=== PATIENT | female | born 1975 | race Caucasian/White ===

== ENCOUNTER 2017-05-29 21:39 | Inpatient (IN) | payer OTHER, MEDICAID ==
[~2017-05-29] VITALS: Ht 137.2 cm; Wt 158.8 kg
[~2017-05-29 21:39] MED LIST: ACETAMINOPHEN-1 EAC2 ORAL; ALBUTEROL SULF8.5 GM INH; AZITHROMYCIN250 MG ORAL; CYCLOBENZAPRINE10 MG ORAL; IBUPROFEN600 MG ORAL; IBUPROFEN800 MG ORAL; MEDROL DOSEPAK4 MG ORAL; NKM; NORCO 5-325 TA1 EACH ORAL; NORCO1 E1 ORAL; PREDNISONE1 MG PO; PREDNISONE10 MG ORAL; PRILOSEC2.5 MG ORAL; PROMETHAZINE-C118 M1 ORAL; RESTORIL15 MG ORAL; ROBAXIN500 MG PO; SEROQUEL100 MG ORAL
[2017-05-29] MEDS ORDERED: NORVASC5 MG ORAL (22:03)
[2017-05-29] MEDS ORDERED: FUROSEMIDE40 MG ORAL (22:03)
[2017-05-29] MEDS ORDERED: ALBUTEROL SULF8.5 GM INH (22:03)
[2017-05-29] MEDS ORDERED: Albuterol ud Inhalation HHN ONE ×2 (22:15→23:00)
[2017-05-29] MEDS ORDERED: PredniSONE 20mg tab ORAL ONE (22:15)
[2017-05-29] MEDS ORDERED: Ipratropium 0.02% Inh Soln 2.5ml UD HHN ONE (22:15)
[2017-05-29 23:44] VITALS: BP 144/56
[2017-05-30 00:30] LABS: APPEARANCE,URINE CLEAR; KETONES,URINE 1+ (NEGATIVE); LEUKOCYTE ESTERASE ,URINE 1+ (NEGATIVE); NITRITE,URINE NEGATIVE (NEGATIVE); PH,URINE 5 (4.5-8.0); PROTEIN,URINE 1+ (NEGATIVE); UROBILINOGEN,URINE 1 MG/DL (0.0-1.0)
[2017-05-30 00:40] LABS: MEAN CORPUSCULAR HEMOGLOBIN 25.9 PG (27.0-31.0); MEAN CORPUSCULAR HGB CONC 31.6 G/DL (32.0-36.0); MEAN CORPUSCULAR VOLUME 82 FL (80-99); MEAN PLATELET VOLUME 7.4 FL (6.5-10.1); PLATELET COUNT 485 K/UL (150-450); RED CELL DISTRIBUTION WIDTH 14.1 % (11.6-14.8); WHITE BLOOD COUNT 19.3 K/UL (4.8-10.8)
[2017-05-30 00:49] LABS: BACTERIA,URINE FEW /HPF; RBC,URINE 0-2 /HPF (0 - 2); SQUAMOUS EPITHELIAL CELL,UR FEW /LPF (NONE/OCC)
[2017-05-30 00:52] LABS: ANION GAP 13 (5-15); CALCIUM 9.2 mg/dL (8.6-10.2); CARBON DIOXIDE 24 mEQ/L (20-30); CHLORIDE 103 mEQ/L (98-107); CREATININE 0.7 mg/dL (0.5-0.9); GLOMERULAR FILTRATION RATE > 60 mL/min (>60); HEMOLYSIS 4; SODIUM 140 mEQ/L (135-145)
[2017-05-30] MEDS ORDERED: cefTRIAXone 1 GM in NS 55 ML IVPB ONE (01:00)
[2017-05-30] MEDS ORDERED: Azithromycin 250mg tab ORAL ONE ×2 (01:00→01:15)
--- NOTE | 2017-05-30 01:14 | Emergency Room Report ---
History of Present Illness General Chief Complaint: Dyspnea/Respdistress Source: Patient Present Illness HPI This is a 41-year-old female who is morbidly obese with a BMI of 84. She has a history of asthma. She presents with chief complaint shortness of breath has been on and off for the last month. History with antibiotics and urgent care month ago. She is using her nebulizer machine without any relief. She is no longer taking Advair. She presents with wheezing the last couple days. Severe. Worse with breathing. Worse with coughing. Worse with exertion. No fever or chills. Cough is nonproductive in nature. Allergies: Coded Allergies: DIVALPROEX SODIUM (Verified Allergy, Intermediate, anxious, 12/12/13) HALOPERIDOL (Verified Allergy, Intermediate, anxiety, 12/12/13) RED DYE (Unverified Allergy, Mild, 03/27/16) Uncoded Allergies: ZYPREXA (Allergy, Unknown, 06/03/16) Patient History Past Medical History: see triage record, old chart reviewed, asthma, psych hx Past Surgical History: other Pertinent Family History: none Social History: Denies: smoking, alcohol use, drug use Now: No Immunizations: other Reviewed Nursing Documentation: PMH: Agreed, PSxH: Agreed Nursing Documentation-PMH Past Medical History: No History, Except For Hx Hypertension: Yes Hx Asthma: Yes Hx COPD: Yes History Of Psychiatric Problem: No - Sleep apnea Review of Systems Eye: Denies: eye pain, blurred vision ENT: Denies: ear pain, nose congestion, throat swelling Respiratory: Reports: cough, shortness of breath, wheezing Cardiovascular: Denies: chest pain, palpitations Gastrointestinal: Denies: abdominal pain, diarrhea, nausea, vomiting Musculoskeletal: Denies: back pain, joint pain Skin: Denies: rash Neurological: Denies: headache, numbness Endocrine: Denies: increased thirst, increased urine Hematologic/Lymphatic: Denies: easy bruising All Other Systems: negative except mentioned in HPI Physical Exam Vital Signs Date Time Temp Pulse Resp B/P (MAP) Pulse Ox O2 Delivery O2 Flow Rate FiO2 05/29/17 21:56 97.9 103 21 142/84 96 Room Air vitals unremarkable Sp02 EP Interpretation: reviewed, normal General Appearance: well appearing, no apparent distress, alert, obese Head: normocephalic, atraumatic Eyes: bilateral eye PERRL, bilateral eye EOMI ENT: hearing grossly normal, normal pharynx Neck: full range of motion, supple, no meningismus Respiratory: chest non-tender, normal breath sounds, wheezing Cardiovascular #1: regular rate, rhythm, no murmur Gastrointestinal: normal bowel sounds, non tender, no mass, no organomegaly, no bruit, non-distended Musculoskeletal: back normal, gait/station normal, normal range of motion Neurologic: alert, oriented x3 Psychiatric: mood/affect normal Skin: warm/dry Medical Decision Making Diagnostic Impression: Primary Impression: Status asthmaticus Qualified Codes: J45.52 - Severe persistent asthma with status asthmaticus Additional Impressions: Morbid obesity with BMI of 60.0-69.9, adult UTI (urinary tract infection) Qualified Codes: N30.00 - Acute cystitis without hematuria ER Course Patient with severe asthma exacerbation. After several treatment and steroid she still wheezing. She does have a leukocytosis. This may be secondary to infection versus steroid response. Antibiotics given. No evidence of ACS, PE, dissection to name a few. We'll get for further workup. Lab Results Impression labs with leukocytosis Rhythm Strip Diag. Results EP Interpretation: yes Rate: 40 Rhythm: NSR, no PVC's, no ectopy Chest X-Ray Diagnostic Results Chest X-Ray Diagnostic Results : Chest X-Ray Ordered: Yes # of Views/Limited/Complete: 1 View Indication: Shortness of Breath EP Interpretation: Yes Interpretation: no consolidation, no effusion, no pneumothorax, no acute cardiopulmonary disease Impression: No acute disease Interpreting ER Provider: Electronically signed by Jordy Woods MD Last Vital Signs Date Time Temp Pulse Resp B/P (MAP) Pulse Ox O2 Delivery O2 Flow Rate FiO2 05/29/17 23:44 97.6 103 20 144/56 96 Room Air Status: improved Disposition: ADMITTED INPATIENT Condition: Serious JORDY WOODS M.D. May 30, 2017 01:14
[2017-05-30 01:19] LABS: BAND NEUTROPHILS % (MANUAL) 1 % (0-8); BASOPHILS % (MANUAL) 0 % (0-2); EOSINOPHILS % (MANUAL) 3 % (0-3); LYMPHOCYTES % (MANUAL) 37 % (20-45); NEUTROPHILS % (MANUAL) 51 % (45-75); PLATELET ESTIMATE ADEQUATE; PLATELET MORPHOLOGY NORMAL; TOTAL CELLS COUNTED 100
[2017-05-30 02:01] VITALS: BP 139/62
[2017-05-30] MEDS ORDERED: NS 55 ML IV ONE (02:03)
[2017-05-30] MEDS ORDERED: Tubing IV Cassette IV ONE (02:03)
[2017-05-30 04:00] VITALS: BP 128/70
[2017-05-30] MEDS ORDERED: DuoNeb 0.5-3(2.5)mg/3ml neb HHN PRN (04:45)
[2017-05-30] MEDS ORDERED: Methocarbamol 500mg tab ORAL PRN (05:00)
[2017-05-30] MEDS ORDERED: Tylenol #4 Tab (300mg/60mg) ORAL PRN (05:00)
[2017-05-30] MEDS ORDERED: Solu-MEDROL 125mg Inj IVP SCH (06:00)
[2017-05-30 08:30] VITALS: BP 127/63
--- NOTE | 2017-05-30 08:35 | Diagnostic Imaging Report ---
Indication: Dyspnea Comparison: 02/18/16 A single view chest radiograph was obtained. Findings: Vascular congestion is suspected with hilar vascular prominence and megaly. Bones are unremarkable. Impression: Suspected mild CHF
--- NOTE | 2017-05-30 08:49 | History and Physical ---
History of Present Illness General Date patient seen: May 30, 2017 Time patient seen: 08:10 Reason for Hospitalization: Dyspnea/Respdistress Present Illness HPI 41-year-old female, morbidly obese with hx of asthma, status asthmaticus, Prader Mariano syndrome presented with intermittent shortness of breath for the last month. Seen doctor in urgent care, was giving antibiotics Had nebulizing machine at home, not helped Not taking Advair ( did before) Last few days developed severe wheezing, worse with coughing and on exertion Cough nonproductive, no hemoptysis Denied chest pain, palpitations, dizziness Workup in ED revealed stable VS leukocytosis-19.3 CXR with mild CHF , but pro BNP-58 mild anemia -11.7/36.9 UA + pyuria, but no bacteria patient was admitted for further management Allergies: Coded Allergies: DIVALPROEX SODIUM (Verified Allergy, Intermediate, anxious, 12/12/13) HALOPERIDOL (Verified Allergy, Intermediate, anxiety, 12/12/13) RED DYE (Unverified Allergy, Mild, 03/27/16) Uncoded Allergies: ZYPREXA (Allergy, Unknown, 06/03/16) Medication History Scheduled Albuterol Sulfate* (Albuterol Sulfate Mdi*), 2 PUFF INH Q4H Albuterol Sulfate* (Albuterol Sulfate Mdi*), 2 PUFF INH Q3H, (Reported) Amlodipine Besylate (Norvasc), 5 MG ORAL DAILY, (Reported) Azithromycin* (Zithromax*), 250 MG ORAL DAILY Furosemide* (Lasix*), 40 MG ORAL DAILY, (Reported) No Known Medications* (NKM - No Known Medications*), 0 ., (Reported) Omeprazole Magnesium (Prilosec), 2.5 MG ORAL DAILY, (Reported) Prednisone (Prednisone), 1 MG PO DAILY, (Reported) Prednisone* (Prednisone*), 10 MG ORAL DAILY Quetiapine Fumarate* (Seroquel*), 300 MG ORAL QHS Scheduled PRN Acetaminophen With Codeine (T#4) (Tylenol #4 Tab*), 1 TAB ORAL Q8H PRN for For Pain Ibuprofen* (Motrin*), 600 MG ORAL Q6H PRN for For Pain Methocarbamol* (Robaxin*), 500 MG PO TID PRN for spasms Patient History Healthcare decision maker Resuscitation status Advanced Directive on File Past Medical/Surgical History Past Medical/Surgical History: (1) Asthma (2) Morbid obesity with BMI of 60.0-69.9, adult (3) Prader-Willi syndrome (4) Status asthmaticus (5) Asthmatic bronchitis (6) Chronic back pain Review of Systems Constitutional: Reports: weakness Eye: Reports: no symptoms ENT: Reports: no symptoms Respiratory: Reports: see HPI Musculoskeletal: Reports: no symptoms Skin: Reports: no symptoms Neurological: Reports: no symptoms Endocrine: Reports: no symptoms Hematologic/Lymphatic: Reports: no symptoms Physical Exam General Appearance: no apparent distress, alert - aawake, oriented, responsive , morbidly obese Lines, tubes and drains: peripheral HEENT: normocephalic, atraumatic, anicteric, mucous membranes moist Neck: supple Respiratory/Chest: no respiratory distress, no accessory muscle use, expiratory wheezing - scattered Cardiovascular/Chest: normal peripheral pulses, regular rhythm, no JVD Abdomen: normal bowel sounds, non tender - obese, soft - obese Extremities: normal range of motion, non-tender, no calf tenderness, normal capillary refill, other - +1 edema BLE Skin Exam: warm/dry Neurologic: no motor/sensory deficits, alert, responsive Musculoskeletal: normal muscle bulk Last 24 Hour Vital Signs Date Time Temp Pulse Resp B/P (MAP) Pulse Ox O2 Delivery O2 Flow Rate FiO2 05/30/17 04:00 97.5 84 18 128/70 95 Nasal Cannula 2.0 05/30/17 03:35 97.6 89 24 139/62 96 Nasal Cannula 2.0 05/30/17 02:01 89 24 139/62 96 Nasal Cannula 2.0 05/29/17 23:44 97.6 103 20 144/56 96 Room Air 05/29/17 23:32 103 23 99 Room Air 05/29/17 23:09 93 34 99 Room Air 05/29/17 22:42 94 31 98 Room Air 05/29/17 22:28 97 26 Room Air 05/29/17 22:26 97 26 97 Room Air 05/29/17 22:25 97 Room Air 05/29/17 21:56 97.9 103 21 142/84 96 Room Air Laboratory Tests Test 05/29/17 23:50 05/30/17 00:00 Urine Color Yellow Urine Appearance Clear Urine pH 5 (4.5-8.0) Urine Specific [place] 1.025 (1.005-1.035) Urine Protein 1+ (NEGATIVE) H Urine Glucose (UA) Negative (NEGATIVE) Urine Ketones 1+ (NEGATIVE) H Urine Occult Blood Negative (NEGATIVE) Urine Nitrite Negative (NEGATIVE) Urine Bilirubin Negative (NEGATIVE) Urine Urobilinogen 1 MG/DL (0.0-1.0) H Urine Leukocyte Esterase 1+ (NEGATIVE) H Urine RBC 0-2 /HPF (0 - 2) Urine WBC 5-10 /HPF (0 - 2) H Urine Squamous Epithelial Cells Few /LPF (NONE/OCC) Urine Bacteria Few /HPF (NONE) Urine HCG, Qualitative Negative White Blood Count 19.3 K/UL (4.8-10.8) H Red Blood Count 4.50 M/UL (4.20-5.40) Hemoglobin 11.7 G/DL (12.0-16.0) L Hematocrit 36.9 % (37.0-47.0) L Mean Corpuscular Volume 82 FL (80-99) Mean Corpuscular Hemoglobin 25.9 PG (27.0-31.0) L Mean Corpuscular Hemoglobin Concent 31.6 G/DL (32.0-36.0) L Red Cell Distribution Width 14.1 % (11.6-14.8) Platelet Count 485 K/UL (150-450) H Mean Platelet Volume 7.4 FL (6.5-10.1) Neutrophils (%) (Auto) % (45.0-75.0) Lymphocytes (%) (Auto) % (20.0-45.0) Monocytes (%) (Auto) % (1.0-10.0) Eosinophils (%) (Auto) % (0.0-3.0) Basophils (%) (Auto) % (0.0-2.0) Differential Total Cells Counted 100 Neutrophils % (Manual) 51 % (45-75) Lymphocytes % (Manual) 37 % (20-45) Monocytes % (Manual) 8 % (1-10) Eosinophils % (Manual) 3 % (0-3) Basophils % (Manual) 0 % (0-2) Band Neutrophils 1 % (0-8) Platelet Estimate Adequate Platelet Morphology Normal Red Blood Cell Morphology Normal Sodium Level 140 mEQ/L (135-145) Potassium Level 4.0 mEQ/L (3.4-4.9) Chloride Level 103 mEQ/L (98-107) Carbon Dioxide Level 24 mEQ/L (20-30) Anion Gap 13 (5-15) Blood Urea Nitrogen 16 mg/dL (7-23) Creatinine 0.7 mg/dL (0.5-0.9) Estimat Glomerular Filtration Rate > 60 mL/min (>60) Glucose Level 119 mg/dL (74-106) H Calcium Level 9.2 mg/dL (8.6-10.2) Pro-B-Type Natriuretic Peptide 58 pg/mL (0-125) Height (Feet): 4 Height (Inches): 6.00 Weight (Pounds): 350 Medications Current Medications Medications (Trade) Dose Ordered Sig/Missy Route PRN Reason Start Time Stop Time Status Last Admin Dose Admin Acetaminophen/ Codeine Phosphate (Tylenol #4) 326 ea Q8H PRN ORAL For Pain 05/30/17 05:00 06/06/17 04:59 Albuterol/ Ipratropium (DuoNeb 0.5-3(2.5)mg/3ml) 3 ml Q4H PRN HHN Shortness of Breath 05/30/17 04:45 06/04/17 04:44 Amlodipine Besylate (Norvasc) 5 mg DAILY ORAL 05/30/17 09:00 06/29/17 08:59 Furosemide (Lasix) 40 mg DAILY ORAL 05/30/17 09:00 06/29/17 08:59 Heparin Sodium (Porcine) (Heparin 5000 units/ml) 5,000 units EVERY 12 HOURS SUBQ 05/30/17 09:00 06/29/17 08:59 Methocarbamol (Robaxin) 500 mg TID PRN ORAL spasms 05/30/17 05:00 06/29/17 04:59 Methylprednisolone Sodium Succinate (Solu-MEDROL) 60 mg EVERY 6 HOURS IVP 05/30/17 06:00 06/29/17 05:59 05/30/17 06:01 Quetiapine Fumarate (SEROquel) 300 mg QHS ORAL 05/30/17 21:00 06/29/17 20:59 Assessment/Plan Assessment/Plan ASSESSMENT status asthmaticus leucocytosis possible PNA possible mild CHF possible UTI mild anemia morbid obesity Prader Mariano syndrome PLAN OF CARE MS floor O2 to keep sat above 92% pulmonary toilet: HHN ATC and PRN and CPT with HHN empiric abx sputum cx if able fup with urine cx IV steroids and taper as permitted a/tussive prn low dose diuretic fup with CXR monitor DVT GI prophylaxis case discussed and evaluated by supervising physician Kiko (Garrett),Blanca MORENO May 30, 2017 08:49
[2017-05-30] MEDS ORDERED: Furosemide 40mg tab ORAL SCH ×2 (09:00)
[2017-05-30] MEDS: Solu-MEDROL 125mg Inj IVP SCH ×2 (10:05→23:51)
[2017-05-30] MEDS: Heparin 5000 units/ml inj SUBQ SCH ×2 (10:07→20:55)
[2017-05-30] MEDS: DuoNeb 0.5-3(2.5)mg/3ml neb HHN SCH ×2 (10:20→19:51)
[2017-05-30] MEDS: Tylenol #4 Tab (300mg/60mg) ORAL PRN ×2 (10:23→17:45)
[2017-05-30 11:07] LABS: MEAN CORPUSCULAR HEMOGLOBIN 26.9 PG (27.0-31.0); MEAN CORPUSCULAR HGB CONC 32.6 G/DL (32.0-36.0); MEAN CORPUSCULAR VOLUME 83 FL (80-99); MEAN PLATELET VOLUME 7.4 FL (6.5-10.1); PLATELET COUNT 462 K/UL (150-450); RED BLOOD COUNT 4.42 M/UL (4.20-5.40); RED CELL DISTRIBUTION WIDTH 14.4 % (11.6-14.8); WHITE BLOOD COUNT 13.9 K/UL (4.8-10.8)
[2017-05-30 11:28] LABS: ANISOCYTOSIS 1+; BAND NEUTROPHILS % (MANUAL) 0 % (0-8); BASOPHILS % (MANUAL) 0 % (0-2); EOSINOPHILS % (MANUAL) 0 % (0-3); HYPOCHROMASIA 1+; LYMPHOCYTES % (MANUAL) 8 % (20-45); NEUTROPHILS % (MANUAL) 90 % (45-75); PLATELET ESTIMATE ADEQUATE; PLATELET MORPHOLOGY NORMAL; TOTAL CELLS COUNTED 100
[2017-05-30 11:29] LABS: ANION GAP 11 (5-15); CALCIUM 9.2 mg/dL (8.6-10.2); CARBON DIOXIDE 24 mEQ/L (20-30); CHLORIDE 102 mEQ/L (98-107); CREATININE 0.5 mg/dL (0.5-0.9); GLOMERULAR FILTRATION RATE > 60 mL/min (>60); HEMOLYSIS 0; POTASSIUM 4.1 mEQ/L (3.4-4.9); SODIUM 137 mEQ/L (135-145)
[2017-05-30 12:15] VITALS: BP 131/65
[2017-05-30] MEDS ORDERED: guaiFENesin 100mg/5ml Liq ud ORAL PRN (13:00)
[2017-05-30 21:00] VITALS: BP 115/62
[2017-05-31] MEDS: Solu-MEDROL 125mg Inj IVP SCH (05:31)
[2017-05-31] MEDS: Furosemide 40mg tab ORAL SCH (07:32)
[2017-05-31] MEDS: Heparin 5000 units/ml inj SUBQ SCH ×2 (07:36→20:06)
[2017-05-31 07:50] LABS: MEAN CORPUSCULAR HEMOGLOBIN 26.2 PG (27.0-31.0); MEAN CORPUSCULAR HGB CONC 31.3 G/DL (32.0-36.0); MEAN CORPUSCULAR VOLUME 84 FL (80-99); MEAN PLATELET VOLUME 7.5 FL (6.5-10.1); PLATELET COUNT 449 K/UL (150-450); RED BLOOD COUNT 4.02 M/UL (4.20-5.40); RED CELL DISTRIBUTION WIDTH 14.7 % (11.6-14.8); WHITE BLOOD COUNT 19.6 K/UL (4.8-10.8)
[2017-05-31 07:53] LABS: ANION GAP 11 (5-15); CALCIUM 8.5 mg/dL (8.6-10.2); CARBON DIOXIDE 27 mEQ/L (20-30); CHLORIDE 104 mEQ/L (98-107); CREATININE 0.6 mg/dL (0.5-0.9); GLOMERULAR FILTRATION RATE > 60 mL/min (>60); HEMOLYSIS 0; POTASSIUM 4.2 mEQ/L (3.4-4.9); SODIUM 142 mEQ/L (135-145)
[2017-05-31 08:00] VITALS: BP 129/85
[2017-05-31 09:42] LABS: BAND NEUTROPHILS % (MANUAL) 1 % (0-8); LYMPHOCYTES % (MANUAL) 21 % (20-45); NEUTROPHILS % (MANUAL) 72 % (45-75); TOTAL CELLS COUNTED 100
[2017-05-31 09:50] LABS: BASOPHILS % (MANUAL) 0 % (0-2); EOSINOPHILS % (MANUAL) 0 % (0-3); HYPOCHROMASIA 1+; PLATELET ESTIMATE ADEQUATE
[2017-05-31] MEDS: DuoNeb 0.5-3(2.5)mg/3ml neb HHN SCH ×3 (10:10→19:34)
--- NOTE | 2017-05-31 10:14 | Pulmonology Progress Note ---
Assessment/Plan Assessment/Plan ASSESSMENT status asthmaticus leucocytosis possible PNA possible mild CHF possible UTI mild anemia morbid obesity HTN Prader Willi syndrome PLAN OF CARE MS floor O2 to keep sat above 92% pulmonary toilet: HHN ATC and PRN and CPT with HHN empiric abx sputum cx if able fup with urine cx taper IV steroids leukocytosis possibly reactive due to steroids a/tussive prn low dose diuretic fup with CXR in am monitor HH monitor BP, CCB, hold SBP below 120 DVT GI prophylaxis case discussed and evaluated by supervising physician Subjective Allergies: Coded Allergies: DIVALPROEX SODIUM (Verified Allergy, Intermediate, anxious, 12/12/13) HALOPERIDOL (Verified Allergy, Intermediate, anxiety, 12/12/13) RED DYE (Unverified Allergy, Mild, 03/27/16) Uncoded Allergies: ZYPREXA (Allergy, Unknown, 06/03/16) Subjective leukocytosis today up to 19 afebrile reports feeling slightly better Objective Last 24 Hour Vital Signs Date Time Temp Pulse Resp B/P (MAP) Pulse Ox O2 Delivery O2 Flow Rate FiO2 05/31/17 08:00 98.2 77 21 129/85 93 Room Air 05/31/17 07:32 77 129/85 05/30/17 23:06 Nasal Cannula 2.0 05/30/17 21:00 98.3 89 18 115/62 95 Nasal Cannula 2.0 89 05/30/17 20:27 97 Nasal Cannula 2.0 28 05/30/17 20:26 97 23 96 Nasal Cannula 2.0 28 05/30/17 19:55 93 23 96 Nasal Cannula 2.0 05/30/17 19:54 Nasal Cannula 2.0 05/30/17 18:44 97.9 05/30/17 12:15 97.9 85 16 131/65 95 Nasal Cannula 2.0 85 05/30/17 11:02 Nasal Cannula 2.0 05/30/17 11:02 99 Nasal Cannula 2.0 05/30/17 10:59 90 23 99 Nasal Cannula 2.0 05/30/17 10:59 90 23 Nasal Cannula 2.0 Intake and Output 05/31/17 06/01/17 19:00 07:00 Intake Total 360 ml Balance 360 ml Intake Oral 360 ml Objective General Appearance: no apparent distress, alert , awake, oriented, responsive , morbidly obese female HEENT: normocephalic, atraumatic, anicteric, mucous membranes moist Neck: supple Respiratory/Chest: no respiratory distress, no accessory muscle use, expiratory wheezing - scattered Cardiovascular/Chest: normal peripheral pulses, regular rhythm, no JVD Abdomen: normal bowel sounds, abdomen soft, obese, non tender Extremities: normal range of motion, non-tender, no calf tenderness, normal capillary refill, +1 edema BLE Skin Exam: warm/dry Neurologic: no motor/sensory deficits, alert, responsive Musculoskeletal: normal muscle bulk Laboratory Tests 05/30/17 10:15: White Blood Count 13.9H, Red Blood Count 4.42, Hemoglobin 11.9L, Hematocrit 36.5L, Mean Corpuscular Volume 83, Mean Corpuscular Hemoglobin 26.9L, Mean Corpuscular Hemoglobin Concent 32.6, Red Cell Distribution Width 14.4, Platelet Count 462H, Mean Platelet Volume 7.4, Neutrophils (%) (Auto) , Lymphocytes (%) ( Auto) , Monocytes (%) (Auto) , Eosinophils (%) (Auto) , Basophils (%) (Auto) , Differential Total Cells Counted 100, Neutrophils % (Manual) 90H, Lymphocytes % (Manual) 8L, Monocytes % (Manual) 2, Eosinophils % (Manual) 0, Basophils % ( Manual) 0, Band Neutrophils 0, Platelet Estimate Adequate, Platelet Morphology Normal, Hypochromasia 1+, Anisocytosis 1+, Sodium Level 137, Potassium Level 4.1 , Chloride Level 102, Carbon Dioxide Level 24, Anion Gap 11, Blood Urea Nitrogen 12, Creatinine 0.5, Estimat Glomerular Filtration Rate > 60, Glucose Level 152H, Calcium Level 9.2 05/31/17 05:40: White Blood Count 19.6H, Red Blood Count 4.02L, Hemoglobin 10.5L, Hematocrit 33.7L, Mean Corpuscular Volume 84, Mean Corpuscular Hemoglobin 26.2L, Mean Corpuscular Hemoglobin Concent 31.3L, Red Cell Distribution Width 14.7, Platelet Count 449, Mean Platelet Volume 7.5, Neutrophils (%) (Auto) , Lymphocytes (%) (Auto) , Monocytes (%) (Auto) , Eosinophils (%) (Auto) , Basophils (%) (Auto) , Differential Total Cells Counted 100, Neutrophils % ( Manual) 72, Lymphocytes % (Manual) 21, Monocytes % (Manual) 6, Eosinophils % ( Manual) 0, Basophils % (Manual) 0, Band Neutrophils 1, Platelet Estimate Adequate, Platelet Morphology , Hypochromasia 1+, Sodium Level 142, Potassium Level 4.2, Chloride Level 104, Carbon Dioxide Level 27, Anion Gap 11, Blood Urea Nitrogen 14, Creatinine 0.6, Estimat Glomerular Filtration Rate > 60, Glucose Level 143H, Calcium Level 8.5L, Giant Platelets 1+ Current Medications Medications (Trade) Dose Ordered Sig/Missy Route PRN Reason Start Time Stop Time Status Last Admin Dose Admin Acetaminophen/ Codeine Phosphate (Tylenol #4) 1 ea Q8H PRN ORAL For Pain 05/30/17 10:30 06/06/17 04:59 05/30/17 17:45 Albuterol/ Ipratropium (DuoNeb 0.5-3(2.5)mg/3ml) 3 ml Q4H PRN HHN Shortness of Breath 05/30/17 04:45 06/04/17 04:44 05/30/17 10:58 Albuterol/ Ipratropium (DuoNeb 0.5-3(2.5)mg/3ml) 3 ml TIDRT HHN 05/30/17 13:00 06/04/17 12:59 05/30/17 19:51 Amlodipine Besylate (Norvasc) 5 mg DAILY ORAL 05/30/17 09:00 06/29/17 08:59 05/31/17 07:32 Furosemide (Lasix) 40 mg DAILY ORAL 05/31/17 09:00 06/30/17 08:59 05/31/17 07:32 Guaifenesin (Robitussin) 100 mg Q4H PRN ORAL For Cough 05/30/17 13:00 06/29/17 12:59 Heparin Sodium (Porcine) (Heparin 5000 units/ml) 5,000 units EVERY 12 HOURS SUBQ 05/30/17 09:00 06/29/17 08:59 05/31/17 07:36 Methocarbamol (Robaxin) 500 mg TID PRN ORAL spasms 05/30/17 05:00 06/29/17 04:59 05/30/17 12:35 Methylprednisolone Sodium Succinate (Solu-MEDROL) 60 mg BID IVP 05/31/17 18:00 05/31/17 18:30 Methylprednisolone Sodium Succinate (Solu-MEDROL) 60 mg DAILY IVP 06/01/17 09:00 07/01/17 08:59 Quetiapine Fumarate (SEROquel) 300 mg QHS ORAL 05/30/17 21:00 06/29/17 20:59 05/30/17 20:53 [facility] HospitalBl[facility] Slade NP May 31, 2017 10:14
--- NOTE | 2017-05-31 11:21 | Diagnostic Imaging Report ---
Indication: Dyspnea Comparison: 05/30/19 A single view chest radiograph was obtained. Findings: The heart is enlarged. There is probable improvement in pulmonary vascular congestion compared to the previous exam although some of this may be technical in nature. Please correlate clinically. Currently a mild degree of interstitial edema could be present. Impression: Mild interstitial edema/CHF may be present. Please correlate clinically
[2017-05-31] MEDS: Tylenol #4 Tab (300mg/60mg) ORAL PRN (11:23)
[2017-05-31 15:23] VITALS: BP 100/49
[2017-05-31] MEDS ORDERED: Solu-MEDROL 125mg Inj IVP SCH (18:00)
[2017-05-31 20:00] VITALS: BP 109/54
[2017-06-01] VITALS: BP_SYST 117; BP_SYST 130; BP_DIAS 55; BP_DIAS 70
[2017-06-01] MEDS: Tylenol #4 Tab (300mg/60mg) ORAL PRN (06:13)
[2017-06-01] MEDS: DuoNeb 0.5-3(2.5)mg/3ml neb HHN SCH ×2 (07:25→13:22)
[2017-06-01 07:34] VITALS: BP 113/70
[2017-06-01] MEDS: Furosemide 40mg tab ORAL SCH (08:15)
[2017-06-01 08:16] LABS: MEAN CORPUSCULAR HEMOGLOBIN 25.5 PG (27.0-31.0); MEAN CORPUSCULAR HGB CONC 30.8 G/DL (32.0-36.0); MEAN CORPUSCULAR VOLUME 83 FL (80-99); MEAN PLATELET VOLUME 7.4 FL (6.5-10.1); PLATELET COUNT 490 K/UL (150-450); RED BLOOD COUNT 4.63 M/UL (4.20-5.40); RED CELL DISTRIBUTION WIDTH 14.7 % (11.6-14.8); WHITE BLOOD COUNT 21.3 K/UL (4.8-10.8)
[2017-06-01] MEDS: Heparin 5000 units/ml inj SUBQ SCH (08:22)
[2017-06-01 08:33] LABS: ANION GAP 10 (5-15); CALCIUM 8.8 mg/dL (8.6-10.2); CARBON DIOXIDE 30 mEQ/L (20-30); CHLORIDE 102 mEQ/L (98-107); CREATININE 0.6 mg/dL (0.5-0.9); GLOMERULAR FILTRATION RATE > 60 mL/min (>60); HEMOLYSIS 2; POTASSIUM 4.3 mEQ/L (3.4-4.9); SODIUM 142 mEQ/L (135-145)
[2017-06-01] MEDS ORDERED: Solu-MEDROL 125mg Inj IVP SCH (09:00)
[2017-06-01] MEDS ORDERED: ALPRAZolam 0.5mg tab ORAL PRN (11:00)
[2017-06-01 11:16] LABS: ANISOCYTOSIS 1+; BAND NEUTROPHILS % (MANUAL) 0 % (0-8); BASOPHILS % (MANUAL) 0 % (0-2); EOSINOPHILS % (MANUAL) 0 % (0-3); HYPOCHROMASIA 1+; LYMPHOCYTES % (MANUAL) 13 % (20-45); NEUTROPHILS % (MANUAL) 85 % (45-75); PLATELET ESTIMATE ADEQUATE; PLATELET MORPHOLOGY NORMAL; TOTAL CELLS COUNTED 100
[2017-06-01 12:00] VITALS: BP 112/67
--- NOTE | 2017-06-01 12:24 | Diagnostic Imaging Report ---
Indication: Dyspnea Comparison: 05/30/17 A single view chest radiograph was obtained. Findings: Interstitial edema suspected with cardiomegaly. Bones are unremarkable. Impression: Mild CHF
--- NOTE | 2017-06-01 14:22 | Pulmonology Progress Note ---
Assessment/Plan Assessment/Plan improving taper steroids titrate fio2 dc home with oral mes. Subjective ROS Limited/Unobtainable: No Constitutional: Reports: no symptoms HEENT: Repors: no symptoms Respiratory: Reports: no symptoms Allergies: Coded Allergies: DIVALPROEX SODIUM (Verified Allergy, Intermediate, anxious, 12/12/13) HALOPERIDOL (Verified Allergy, Intermediate, anxiety, 12/12/13) RED DYE (Unverified Allergy, Mild, 03/27/16) Uncoded Allergies: ZYPREXA (Allergy, Unknown, 06/03/16) Objective Last 24 Hour Vital Signs Date Time Temp Pulse Resp B/P (MAP) Pulse Ox O2 Delivery O2 Flow Rate FiO2 06/01/17 13:35 81 20 98 Nasal Cannula 2.0 06/01/17 13:25 85 22 96 Nasal Cannula 2.0 06/01/17 12:00 98.7 75 20 112/67 95 Nasal Cannula 06/01/17 08:15 74 113/70 06/01/17 07:39 73 22 97 Nasal Cannula 2.0 06/01/17 07:34 97.4 74 18 113/70 97 Nasal Cannula 2.0 06/01/17 07:29 72 22 97 Nasal Cannula 2.0 06/01/17 07:27 Nasal Cannula 2.0 06/01/17 00:00 97.5 69 19 117/55 97 Nasal Cannula 2.0 05/31/17 20:00 98.2 91 19 109/54 97 Nasal Cannula 2.0 05/31/17 19:42 79 18 99 Nasal Cannula 2.0 05/31/17 19:33 87 20 87 Room Air 05/31/17 19:33 87 20 Room Air 21 05/31/17 19:33 Nasal Cannula 2.0 05/31/17 19:33 87 20 Room Air 21 05/31/17 19:33 21 05/31/17 15:23 98.1 88 18 100/49 97 Nasal Cannula 2.0 05/31/17 15:00 Nasal Cannula 2.0 28 General Appearance: WD/WN, no acute distress HEENT: normocephalic Respiratory/Chest: chest wall non-tender, lungs clear Breasts: no masses Cardiovascular: normal peripheral pulses, regular rhythm Abdomen: normal bowel sounds, soft, non tender, no organomegaly Genitourinary: normal external genitalia Skin: no rash Neurologic/Psychiatric: morgue technician II-XII grossly normal, abnormal gait Lymphatic: no neck adenopathy Microbiology Date/Time Source Procedure Growth Status 05/31/17 15:42 Sputum Expectorated Gram Stain - Final Resulted 05/31/17 15:42 Sputum Expectorated Sputum Culture - Preliminary Resulted 05/30/17 19:50 Urine,Clean Catch Urine Culture - Preliminary NO GROWTH Resulted Laboratory Tests 06/01/17 07:50: White Blood Count 21.3H, Red Blood Count 4.63, Hemoglobin 11.8L, Hematocrit 38.4 , Mean Corpuscular Volume 83, Mean Corpuscular Hemoglobin 25.5L, Mean Corpuscular Hemoglobin Concent 30.8L, Red Cell Distribution Width 14.7, Platelet Count 490H, Mean Platelet Volume 7.4, Neutrophils (%) (Auto) , Lymphocytes (%) (Auto) , Monocytes (%) (Auto) , Eosinophils (%) (Auto) , Basophils (%) (Auto) , Differential Total Cells Counted 100, Neutrophils % ( Manual) 85H, Lymphocytes % (Manual) 13L, Monocytes % (Manual) 2, Eosinophils % ( Manual) 0, Basophils % (Manual) 0, Band Neutrophils 0, Platelet Estimate Adequate, Platelet Morphology Normal, Hypochromasia 1+, Anisocytosis 1+, Sodium Level 142, Potassium Level 4.3, Chloride Level 102, Carbon Dioxide Level 30, Anion Gap 10, Blood Urea Nitrogen 20, Creatinine 0.6, Estimat Glomerular Filtration Rate > 60, Glucose Level 151H, Calcium Level 8.8 Current Medications Medications (Trade) Dose Ordered Sig/Missy Route PRN Reason Start Time Stop Time Status Last Admin Dose Admin Acetaminophen/ Codeine Phosphate (Tylenol #4) 1 ea Q8H PRN ORAL For Pain 05/30/17 10:30 06/06/17 04:59 06/01/17 06:13 Albuterol/ Ipratropium (DuoNeb 0.5-3(2.5)mg/3ml) 3 ml Q4H PRN HHN Shortness of Breath 05/30/17 04:45 06/04/17 04:44 05/30/17 10:58 Albuterol/ Ipratropium (DuoNeb 0.5-3(2.5)mg/3ml) 3 ml TIDRT HHN 05/30/17 13:00 06/04/17 12:59 06/01/17 13:22 Alprazolam (Xanax) 0.5 mg Q8H PRN ORAL For Anxiety 06/01/17 11:00 06/08/17 10:59 06/01/17 12:17 Amlodipine Besylate (Norvasc) 5 mg DAILY ORAL 05/30/17 09:00 06/29/17 08:59 06/01/17 08:15 Furosemide (Lasix) 40 mg DAILY ORAL 05/31/17 09:00 06/30/17 08:59 06/01/17 08:15 Guaifenesin (Robitussin) 100 mg Q4H PRN ORAL For Cough 05/30/17 13:00 06/29/17 12:59 Heparin Sodium (Porcine) (Heparin 5000 units/ml) 5,000 units EVERY 12 HOURS SUBQ 05/30/17 09:00 06/29/17 08:59 06/01/17 08:22 Methocarbamol (Robaxin) 500 mg TID PRN ORAL spasms 05/30/17 05:00 06/29/17 04:59 05/30/17 12:35 Methylprednisolone Sodium Succinate (Solu-MEDROL) 60 mg DAILY IVP 06/01/17 09:00 07/01/17 08:59 06/01/17 08:15 Quetiapine Fumarate (SEROquel) 300 mg QHS ORAL 05/30/17 21:00 06/29/17 20:59 05/31/17 20:03 EUGENE FLEMING Jun 01, 2017 14:22
[2017-06-02] MEDS ORDERED: LEVAQUIN500 MG ORAL (13:17)
[2017-06-02] MEDS ORDERED: MEDROL4 MG ORAL (13:17)
[2017-06-02] MEDS ORDERED: ADVAIR 250-501 EACH INH (13:18)
--- NOTE | 2017-06-02 13:24 | Discharge Summary ---
Discharge Summary Hospital Course Date of Admission May 30, 2017 at 01:15 Date of Discharge Jun 01, 2017 at 16:08 Admitting Diagnosis Asthma exacerbation HPI Bruna Cruz is a 41 year old female who was admitted on May 30, 2017 at 01: 15 for Asthma Exacerbation Hospital Course dc summary #[id number] Discharge Medications New Medications: Fluticasone/Salmeterol (Advair 250-50 Diskus) 1 Each Blst.w.dev 1 PUFF INH EVERY 12 HOURS, #1 EA Levofloxacin* (Levaquin*) 500 Mg Tablet 500 MG ORAL DAILY, #5 TAB Methylprednisolone* (Medrol*) 4 Mg Tablet 4 MG ORAL DAILY, #10 TAB 0 Refills Continued Medications: Albuterol Sulfate* (Albuterol Sulfate Mdi*) 8.5 Gm Hfa.aer.ad 2 PUFF INH Q4H, #1 INH 0 Refills Amlodipine Besylate (Norvasc) 5 Mg Tablet 5 MG ORAL DAILY, TAB Furosemide* (Lasix*) 40 Mg Tablet 40 MG ORAL DAILY, TAB Methocarbamol* (Robaxin*) 500 Mg Tablet 500 MG PO TID PRN for spasms, #21 TAB 0 Refills Omeprazole Magnesium (Prilosec) 2.5 Mg Suspdr.pkt 2.5 MG ORAL DAILY, PACKET Quetiapine Fumarate* (Seroquel*) 100 Mg Tablet 300 MG ORAL QHS, #21 TAB Discharge Condition Upon Discharge: stable Discharge Disposition Patient was discharged to Home () Discharge Diagnoses: Kiko (Garrett)Blanca NP Jun 02, 2017 13:24
--- NOTE | 2017-06-03 06:00 | Discharge Summary ---
DATE OF ADMISSION: 05/30/2017 DATE OF DISCHARGE: 06/01/2017 The patient admitted under Dr. Marina. REASON FOR ADMISSION: A 41 years old female, morbidly obese, with history of asthma/COPD, hypertension, and PraderWilli syndrome, presented to emergency room with intermittent shortness of breath for the last month. The patient had seen the doctor in the urgent care, which was giving her antibiotics. She had nebulizing machine at home. However, all these did not help. She used to take Advair, but she stopped some time ago. Last few days, worsening wheezing, worsening respiratory status with severe wheezing, which worsens coughing on exertion. Cough is nonproductive. No hemoptysis. She denied chest pain, palpitation, and dizziness. Workup in the emergency room revealed stable vital signs. Leukocytosis 19.3. Chest x-ray revealed mild CHF. ProBNP 58. Mild anemia. Hemoglobin 11.7, hematocrit 36.9. Urinalysis revealed pyuria, but few bacteria. In the emergency department, the patient was given few rounds of bronchodilator treatment and steroids. She was still severely wheezing after bronchodilator treatment. The patient was admitted for further management. ADMITTING DIAGNOSES: Include: 1. Status asthmaticus. 2. Leukocytosis. 3. Possible pneumonia. 4. Possible mild congestive heart failure. 5. Possible urinary tract infection. 6. Mild anemia. 7. Morbid obesity. 8. PraderWilli syndrome. HOSPITAL COURSE: The patient admitted to medical/surgical floor. The patient was on supplemental oxygen to keep saturation above 92%. Pulmonary toilet provided around the clock and as needed along with the CPT. The patient started on empiric antibiotic. Sputum culture was negative. Urine culture was negative. The patient was on the IV steroids, which were gradually tapered and changed to Medrol Dosepak prior to discharge. Antitussive provided as needed. The patient was on the low dose maintenance diuretic as she is at home. Follow up chest x-ray still revealed probable mild CHF, but no evidence of pneumonia, interstitial congestion. Hemoglobin and hematocrit were closely monitored at baseline. DVT and GI prophylaxis provided. The patient was stable for discharge on Medrol Dosepak. Five more days of empiric antibiotic. The patient had albuterol nebulizing machine at home. The patient given prescription for Advair. The patient strongly recommended to follow up with the inspector plug seam as outpatient. DISCHARGE DIAGNOSES: Include: 1. Status asthmaticus. 2. Leukocytosis. 3. Possible pneumonia. 4. Possible mild congestive heart failure. 5. Mild anemia. 6. Morbid obesity. 7. PraderWilli syndrome. DISCHARGE MEDICATIONS: See medication reconciliation list. DISCHARGE INSTRUCTIONS: The patient discharged home. Follow up with primary medical doctor. Follow up with the inspector plug seam. Recommended pulmonary function test and/or bedside spirometry to get baseline and adjust maintenance inhaler medication. Encouraged the patient to comply with medication regimen. Matt Marina M.D. Blanca [facility] N.PJerel DR: Ned JOB#: [id number] CC:
== END 2017-06-01 16:08 | disposition home or self-care (01) | DRG 202 ==
LOC: EMR 22:19 → EDBEDREQ 05-30 01:04 → 3E 05-30 01:15 → EDBEDREQ 05-30 01:56
DX: J45.902 Unspecified asthma with status asthmaticus (principal); J18.9 Pneumonia, unspecified organism; Q87.1 Congenital malformation syndromes predominantly associated with short stature; I50.9 Heart failure, unspecified; N39.0 Urinary tract infection, site not specified; Z68.45 Body mass index [BMI] 70 or greater, adult; E66.01 Morbid (severe) obesity due to excess calories; I10 Essential (primary) hypertension; D64.9 Anemia, unspecified; Z88.8 Allergy status to other drugs, medicaments and biological substances
CPT/HCPCS: 36415; 71010; 80048; 81001; 81025; 83880; 85007; 85025; 87070; 87086; 87205; 94640; 94664; 94760; 99285; J7620